=== PATIENT | male | born 1995 | race Caucasian/White ===

== ENCOUNTER 2017-12-03 11:40 | Emergency (ER) | payer SELFPAY ==
--- OUTSIDE RECORDS SUMMARY | 2017-12-03 11:41 | XMS REPORT | Summary of Care ---
:1995 Author Name Shonna Shrestha M.A. Address [place] Physicians Unavailable , Care Team Providers Name Role Phone LE Arana, SAHHID Unavailable Unavailable [facility], LEVY Reed Unavailable Unavailable Unavailable Unavailable Unavailable Functional Status Name Dates Details Functional status health issues are not documented Status: Name Dates Details Cognitive status health issues are not documented Status: Problems Name Dates Details Inguinal hernia, right (550.90, K40.90) Status: Active Elevated liver enzymes (790.5, R74.8) Status: Active Hospital discharge follow-up (V67.59, Z09) Status: Active Medications Name Dates Details No Reported Medications Refills: 0 Active Allergies and Adverse Reactions Name Dates Details No Known Drug Allergies (Allergy) Status: Active Past Medical History Name Dates Details History of Anxiety (300.00, F41.9) Status: Resolved History of attention deficit hyperactivity disorder (ADHD) (V11.8, Z86.59) Status: Resolved History of depressed bipolar disorder (296.56, F31.70) Status: Resolved History of Hepatitis C antibody positive in blood (795.79, R76.8) Status: Resolved History of right inguinal hernia (V45.89, Z87.19) Status: Resolved History of schizophrenia (V11.0, Z86.59) Status: Resolved Procedures Procedure Dates Details [QL] HCV RNA, QUANTITATIVE REAL TIME PCR Date: 13-Oct-2017 [Q] HIV-1/2 Antigen and Antibodies, Fourth Generation, Date: 13-Oct-2017 with Reflexes History of Anterior cruciate ligament repair Completed History of Nasal bone fracture repair Completed Immunization Name Dates Details Immunizations not documented Family History Name Dates Details Family history of hypertension (V17.49, Z82.49) Comments: Multiple Family Members Status: Active Social History Name Dates Details - Status: Name Dates Details Smoker. current status unknown Vital Signs Date Test Result Details [id number] Physical Findings 12 Status: Comments: PHQ-9 Adult Depression Screening Results Date Description Value Details Results not documented Plan of Care Name Dates Details Planned Observations Planned Goals not documented Planned Encounters Appointment; SHAHID LUJAN M.D. On: 05-Dec-2017 8:30 Instructions Name Dates Details Instructions not documented Encounters Appointment; LEVY HATFIELD NP On: 13-Oct-2017 13:00 Encounter Diagnosis: Problem not documented Appointment; SHAHID LUJAN M.D. On: 05-Dec-2017 8:30 Encounter Diagnosis: Problem not documented
--- OUTSIDE RECORDS SUMMARY | 2017-12-03 11:42 | XMS REPORT ---
:1995 [facility] Address [address] [place] [address] [address] [place] [address] Care Team Providers Name Role Phone DR MAISHA MENDEZ Unavailable Unavailable JOYCE ACKERMAN Unavailable Unavailable Problems This patient has no known problems. Allergies, Adverse Reactions, Alerts This patient has no known allergies or adverse reactions. Medications This patient has no known medications. Encounters Start End Encounter Admission Attending Care Care Encounter Date/Time Date/Time Type Type Clinicians Facility Department ID 2017-12-02 2017-12-02 Emergency E MAISHA MENDEZ [facility] [id number] 04:51:00 06:16:00 2017-10-09 2017-10-09 Emergency E TYRON [facility] [id number] 08:59:00 12:30:00 JOYCE Results Test Description Test Time Test Comments Text Results Atomic Results Result Comments URINALYSIS WITH MICRO 2017-12-02 06:25:00 Test Item Value Reference Range Comments COLOR (test code=COLU) DK YELLOW YELLOW CLARITY (test code=CLA) SLT HAZY CLEAR GLUCOSE UR (test code=UA GLUCOSE) NEGATIVE NEGATIVE BILI UR (test code=BILE) NEGATIVE NEGATIVE KETONES UR (test code=CHERYLE) TRACE NEGATIVE SP GRAVITY (test code=SPGR) 1.036 1.005-1.030 PH UR (test code=PH) 5.5 4.5-8.0 PROTEIN UR (test code=PU) 1+ NEGATIVE UROBIL UR (test code=UROQ) 0.2 EU/dL 0.2-1.0 NITRITE UR (test code=NITRITE) NEGATIVE NEGATIVE BLOOD UR (test code=UA BLOOD) 3+ NEGATIVE LEUK ES UR (test code=LEUK) NEGATIVE NEGATIVE WBC UR (test code=UWBC) 0 /HPF 0-3 RBC UR (test code=URBC) 7 /HPF 0-2 EPITH UR (test code=UEPC) FEW /LPF NONE BACTERIA UR (test code=UBACT) NONE /HPF NONE CAST UR (test code=CAST) /LPF NONE CRYSTAL UR (test code=CRYU) / LPF NONE MUCUS UR (test code=MUC) / HPF NONE AMORPH UR (test code=ALESSIA) FEW / HPF NONE TRICH UR (test code=UTRICH) /HPF NONE YEAST UR (test code=UY) /HPF NONE SPERM UR (test code=USPERM) /HPF NONE CT STONE PROTOCOL [id number] 05:46:05AFTER HOURS SERVICE ON: 12/02/2017 5:43 AMCT Scan of the Abdomen and Pelvis Without ContrastLocation Code [id number]: [id number]: Flank painTechnique: Axial and reconstructed coronal scans were performedon a helicalscanner pre oral and IV contrast. Study is limited secondary to lack of oraland IV contrast. One or more of the following dose reduction techniques were used: Automatedexposure control, adjustment of the mA and/or kV according to patient size,and/or utilization of iterative reconstructiontechnique.Findings: Liver: No significant findings. Gallbladder/ Biliary: No significant findings. Pancreas: No significant findings. Spleen: No significant findings.Adrenals: No significant findings. Kidneys: There is mild respiratory hydronephrosis and hydroureter due to a 3 mmUVJ calculus. There isno hydronephrosis of the left kidney. A 2 mmnonobstructing right upper pole renal calculus is also present. Bladder isincompletely filled.Bowel: No significant findings. The appendix is unremarkable.Impression:1. 3 mm right UVJ calculus causing mild hydronephrosis.2. 2 mm nonobstructing right upper pole renal calculus.AMYLASE AND [id number] 05:35:00 Test Item Value Reference Range Comments AMYLASE (test code=10A) 44 U/L 28-100 LIPASE (test code=60A) 73 IU/L 73-393 COMPREHENSIVE METABOLIC [id number] 05:35:00 Test Item Value Reference Range Comments GLUCOSE (test code=06D) 106 mg/dL 75-100 SODIUM (test code=01A) 138 mmol/L 136-145 POTASSIUM (test code=01B) 3.9 mmol/L 3.6-5.1 CHLORIDE (test code=04A) 103 mmol/L 98-107 CO2 (test code=02A) 27 mmol/L 22-32 ANION GAP (test code=ANG) 11.9 mmol/L BUN (test code=05D) 14 mg/dL 7-18 CREATININE (test code=03E) 1.2 mg/dL 0.7-1.3 BUN/CREA (test code=BCR) 12 12-20 CALCIUM (test code=09D) 8.9 mg/dL 8.3-9.5 BILI TOTAL (test code=11A) 0.6 mg/dL 0.2-1.0 PROTEIN (test code=07D) 8.0 g/dL 6.4-8.2 ALBUMIN (test code=08D) 4.2 g/dL 3.5-4.8 GLOBULIN (test code=GLB) 3.8 g/dL 1.5-3.8 ALB/GLOB (test code=AGRR) 1.1 1.0-2.6 ALK PHOS (test code=35A) 79 IU/L 42-121 AST (test code=30A) 128 IU/L <=42 ALT (test code=31A) 259 IU/L <=78 CBC (INCLUDES AUTOMATED DIFFERENTIAL)2017-12-02 05:20:00 Test Item Value Reference Range Comments WBC (test code=WBC) 7.7 10\S\3/uL 4.5-11.0 RBC (test code=RBC) 5.07 10\S\6/uL 4.30-5.70 HGB (test code=HBG) 15.5 g/dL 14.0-18.0 HCT (test code=HCT) 44.5 % 35.0-46.0 MCV (test code=MCV) 87.8 fL 80.0-94.0 MCH (test code=MCH) 30.6 pg 27.0-31.0 MCHC (test code=MCHC) 34.8 g/dL 32.0-36.0 RDW (test code=RDW) 12.0 % 11.5-14.5 PLT (test code=PLT) 243 10\S\3/uL 130-400 MPV (test code=MPV) 10.9 fL 9.4-12.4 NEUTROP # (test code=NE#) 3.1 10\S\3/uL 2.0-8.0 LYMPH # (test code=LY#) 4.1 10\S\3/uL 1.2-4.0 MONOCYTE # (test code=MO#) 0.5 10\S\3/uL 0.0-1.1 EOSINOPH # (test code=EO#) 0.1 10\S\3/uL 0.0-0.7 BASOPHIL # (test code=BA#) 0.0 10\S\3/uL 0.0-0.3 IG # (test code=IG#) 0.02 10\S\3/uL 0.00-0.06 NRBC # (test code=NRBC#) 0.00 10\S\3/uL 0.00-0.01 NEUTROPH % (test code=NE%) 39.8 % 35.0-73.0 LYMPH % (test code=LY%) 52.7 % 20.0-55.0 MONO % (test code=MO%) 6.0 % 2.5-10.0 EOSINOPH % (test code=EO%) 0.8 % 0.0-5.0 BASOPHIL % (test code=BA%) 0.4 % 0.0-2.0 IG % (test code=IG%) 0.3 % 0.0-0.8 NRBC% (test code=NRBC%) 0.0 % 0.0-0.2 MANDIFF (test code=MDIFF) NO NO RBC MORPH (test code=RBCMOR) NORMAL HEPATITIS C BY PCR (VIRAL LOAD)2017-10-11 16:04:00 Test Item Value Reference Range Comments HCV RNA QUANTITATIVE REAL [id number] IU/mL NOT DETECTED TIME PCR (test uihr=[id number]) HCV RNA, Quantitative Real 6.02 Log IU/mL NOT DETECTED Time PCR (test hsdd=[id number]) END NOTE 1 (test This test was performed xojv=[id number]) using Real-Time Polymerase ChainReaction.Reportable Range: 15 IU/mL to 100,000,000 IU/mL(1.18 Log IU/mL to 8.00 Log IU/mL).The analytical performance characteristics of thisassay have been determined by [employer].The modifications have not been cleared or approved bythe FDA. This assay has been validated pursuant to theCLIA regulations and is used for clinical purposes.For more information on this test, go to:http://education.[employer].io/faq/OCB17u1(Thi s link is being provided for informational/educational purposes only.)TEST PERFORMED AT:[id number] [place], [place] [address]VTQYQUNADEEN CHAVES MD HEPATITIS A IGM [id number] 08:01:00 Test Item Value Reference Range Comments HEPATITIS A IGM (test NON-REACTIVE NON-REACTIVE TEST PERFORMED AT:QUEST frkm=[id number]) [facility] [id number] [place] [id number] WALSH M.D. HEPATITIS C [id number] 13:17:00 Test Item Value Reference Range Comments HCAB (test code=HCAB) REACTIVE NON-REACTIVE U/S [id number] 12:04:29Location of dictation: [id number] ULTRASOUNDCLINICAL HISTORY:Right scrotal mass and painCOMPARISON:NoneTECHNIQUE: Multiple high resolution images were obtained through the pelvis using amultifrequency linear transducer. Color Doppler was also utilized.FINDINGS: The bilateral testes are normal in size, shape, and echogenicity. The righttestis measures 3.8 x 2.3 x 2.5 cm. The left testis measures 3.1x 2.3 x 2.6cm. No solid or cystic masses identified. Vascular flow is documented; thereis no evidence of torsion.The bilateral epididymides are also within normal limits. No solid or cysticmass is found. No hyperemia is seen.There is no hydrocele.With patient in the upright position there is a heterogeneous area of swellingin the right inguinal canal measuring 5 x 3 x 4.4 cm with no peristalsissuggestive of a fat-containing right inguinal hernia. This can be confirmed onCT.IMPRESSION:1. No evidence for testicular mass or torsion.2. Findings suggestive of a fat-containing right inguinal hernia. CTmay behelpful for confirmation.HEPATITIS B SURFACE [id number] 12:00:00 Test Item Value Reference Range Comments HBSAG (test code=HBSAG) NON-REACTIVE NON-REACTIVE CT ABDOMEN AND PELVIS WITH [id number] 10:21:04CT abdomen and pelvis with contrastLocation Code: [id number] HISTORY: R10.31: RIGHT LOWER QUADRANT PAINCOMPARISON: NoneTechnique: Helical CT of the abdomen and pelvis was performed followingintravenouscontrast. Thin section axial, sagittal and coronal images wereobtained. One or more of the followingdose reduction techniques were used:Automated exposure control, adjustment of the mA and or KV according to patientsize, and/or utilization of iterative reconstruction technique. DLP: 1052mGy-cm.FINDINGS:The lung bases are clear. The liver, gallbladder, adrenal glands, kidneys, pancreas, and spleen areunremarkable.The unopacified loops of bowel demonstrate no focal thickening or dilatation.Moderate stool seen throughout the colon. The appendix is visualized and isnormal. There is no free peritonealair or fluid. The abdominal aorta is normal in caliber and contour. There is noretroperitoneal massor fluid collection. The urinary bladder is unremarkable.There is no pelvic mass or fluid collection. No evidence of diverticulitis.The bones, skin, and surrounding soft tissues are unremarkable.IMPRESSION: 1. Moderate stool throughout the colon may represent constipation. Normalappendix.COMPREHENSIVE METABOLIC [id number] 09:46:00 Test Item Value Reference Range Comments GLUCOSE (test code=06D) 103 mg/dL 75-100 SODIUM (test code=01A) 137 mmol/L 136-145 POTASSIUM (test code=01B) 4.2 mmol/L 3.6-5.1 CHLORIDE (test code=04A) 101 mmol/L 98-107 CO2 (test code=02A) 32 mmol/L 22-32 ANION GAP (test code=ANG) 8.2 mmol/L BUN (test code=05D) 11 mg/dL 7-18 CREATININE (test code=03E) 1.0 mg/dL 0.7-1.3 BUN/CREA (test code=BCR) 11 12-20 CALCIUM (test code=09D) 8.9 mg/dL 8.3-9.5 BILI TOTAL (test code=11A) 0.7 mg/dL 0.2-1.0 PROTEIN (test code=07D) 7.9 g/dL 6.4-8.2 ALBUMIN (test code=08D) 4.3 g/dL 3.5-4.8 GLOBULIN (test code=GLB) 3.6 g/dL 1.5-3.8 ALB/GLOB (test code=AGRR) 1.2 1.0-2.6 ALK PHOS (test code=35A) 121 IU/L 42-121 AST (test code=30A) 341 IU/L <=42 ALT (test code=31A) 903 IU/L <=78 [id number] 09:46:00 Test Item Value Reference Range Comments AMYLASE (test code=10A) 42 U/L 28-100 [id number] 09:40:00 Test Item Value Reference Range Comments COLOR (test code=COLU) YELLOW YELLOW CLARITY (test code=CLA) CLEAR CLEAR GLUCOSE UR (test code=UA GLUCOSE) NEGATIVE NEGATIVE BILI UR (test code=BILE) NEGATIVE NEGATIVE KETONES UR (test code=CHERYLE) NEGATIVE NEGATIVE SP GRAVITY (test code=SPGR) 1.018 1.005-1.030 PH UR (test code=PH) 7.0 4.5-8.0 PROTEIN UR (test code=PU) NEGATIVE NEGATIVE UROBIL UR (test code=UROQ) 1.0 EU/dL 0.2-1.0 NITRITE UR (test code=NITRITE) NEGATIVE NEGATIVE BLOOD UR (test code=UA BLOOD) NEGATIVE NEGATIVE LEUK ES UR (test code=LEUK) NEGATIVE NEGATIVE LIPASE [id number] 09:40:00 Test Item Value Reference Range Comments LIPASE (test code=60A) 70 IU/L 73-393 CBC (INCLUDES AUTOMATED DIFFERENTIAL)2017-10-09 09:26:00 Test Item Value Reference Range Comments WBC (test code=WBC) 4.3 10\S\3/uL 4.5-11.0 RBC (test code=RBC) 5.14 10\S\6/uL 4.30-5.70 HGB (test code=HBG) 15.8 g/dL 14.0-18.0 HCT (test code=HCT) 47.2 % 35.0-46.0 MCV (test code=MCV) 91.8 fL 80.0-94.0 MCH (test code=MCH) 30.7 pg 27.0-31.0 MCHC (test code=MCHC) 33.5 g/dL 32.0-36.0 RDW (test code=RDW) 13.1 % 11.5-14.5 PLT (test code=PLT) 215 10\S\3/uL 130-400 MPV (test code=MPV) 10.5 fL 9.4-12.4 NEUTROP # (test code=NE#) 1.8 10\S\3/uL 2.0-8.0 LYMPH # (test code=LY#) 1.9 10\S\3/uL 1.2-4.0 MONOCYTE # (test code=MO#) 0.4 10\S\3/uL 0.0-1.1 EOSINOPH # (test code=EO#) 0.1 10\S\3/uL 0.0-0.7 BASOPHIL # (test code=BA#) 0.0 10\S\3/uL 0.0-0.3 IG # (test code=IG#) 0.01 10\S\3/uL 0.00-0.06 NRBC # (test code=NRBC#) 0.00 10\S\3/uL 0.00-0.01 NEUTROPH % (test code=NE%) 42.7 % 35.0-73.0 LYMPH % (test code=LY%) 44.2 % 20.0-55.0 MONO % (test code=MO%) 10.3 % 2.5-10.0 EOSINOPH % (test code=EO%) 2.1 % 0.0-5.0 BASOPHIL % (test code=BA%) 0.5 % 0.0-2.0 IG % (test code=IG%) 0.2 % 0.0-0.8 NRBC% (test code=NRBC%) 0.0 % 0.0-0.2 MANDIFF (test code=MDIFF) NO NO RBC MORPH (test code=RBCMOR) NORMAL
[2017-12-03] MEDS ORDERED: NA CHLORIDE 0.9% 1,000 ML ONE (11:59)
--- NOTE | 2017-12-03 12:18 | RAD REPORT ---
EXAM DESCRIPTION: CT - Stone Protocol - 12/03/2017 12:08 pm CLINICAL HISTORY: Abdominal pain, flank pain, history of recent diagnosis of kidney stone COMPARISON: None. TECHNIQUE: Axial 5 mm thick images were obtained without oral or IV contrast. The [id number] span s the entirety of the system including uppermost abdomen and lung bases. All CT scans are performed using dose optimization technique as appropriate and may include automated exposure control or mA/KV adjustment according to patient size. FINDINGS: Mild right-sided hydronephrosis is present secondary to a 2 mm calcification at the UVJ. R ight kidney is edematous. There are additional punctate 1 millimeter sized caliceal calculi on the ri ght. No left-sided hydronephrosis or left-sided calculus. No suspicious renal masses. Isodense masses and pyelonephritis are not excluded on a stone protocol CT scan. Partially filled urinary bladder sh ows no suspicious finding. Imaged portions of the liver, spleen and pancreas show no suspicious findings on non-contrast imaging . No gallbladder or biliary tree abnormality identified. No significant adrenal finding. No suspicious bowel findings. No mass or bulky lymphadenopathy. Fat filled right inguinal hernia is present. No free air or pneumat osis. Trace free fluid in the dependent portion of the pelvis is likely reactive. No significant bony abnormality. IMPRESSION: Mild right-sided hydronephrosis secondary to a 2 millimeter UVJ stone. Isodense masses and pyelonephritis are not excluded on stone protocol technique.
[2017-12-03 12:24] LABS: Absolute Lymphocytes (CBC) 1.3 K/uL (0.7-4.9); Absolute Monocytes 0.4 K/uL (0.1-1.3); Absolute Neutrophil 6.3 K/uL (1.8-8.0); Basophils % 0.3 % (0-1.3); Eosinophils % 0.1 % (0-4.4); Hematocrit 41.5 % (39.6-49.0); Lymphocytes % 16.4 % (15.3-44.8); MCH 31.1 pg (27.0-35.0); MCV 89.6 fL (80-100); Monocytes % 4.7 % (3.3-12.3); RBC Red Blood Cell Count 4.63 M/uL (4.33-5.43)
[2017-12-03] MEDS ORDERED: FENTANYL CITR 100 MCG/2 ML ONE (12:25)
[2017-12-03] MEDS ORDERED: TAMSULOSIN 0.4 MG SR CAP ONE (12:27)
[2017-12-03 12:38] LABS: Potassium 3.6 mEq/L (3.6-5.0)
--- NOTE | 2017-12-03 13:52 | ER ---
Nurse's Notes [facility] Name: Ihsan Castellanos Age: 22 yrs Sex: Male : 1995 Arrival Date: 12/03/2017 Time: 11:42 Bed 5 Private MD: Diagnosis: Calculus of kidney and ureter Presentation: 12/03 11:44 Presenting complaint: EMS states: pt was seen and treated in the hospital yesterday, dx sg with kidney stone sent home with prescriptions for flomax, an anti inflammatory, is not able to get the meds until Friday, pt reports worsening pain and nausea/vomiting today, denies having passed a kidney stone to his knowledge. Transition of care: patient was not received from another setting of care. Onset of symptoms was December 03, 2017. Initial Sepsis Screen: Does the patient meet any 2 criteria? No. Patient's initial sepsis screen is negative. Does the patient have a suspected source of infection? No. Patient's initial sepsis screen is negative. Care prior to arrival: Medication(s) given: zofran 4 mg, Fentanyl 100 mcg IVP, reports pain 10/10 down to 5/10, reports nausea upon arrival to facility IV initiated. 11:44 Method Of Arrival: EMS: [facility] sg 11:44 Acuity: WAYLON 3 sg Historical: - Allergies: 11:48 No Known Allergies; sg - Home Meds: 11:48 None [Active]; sg - PMHx: 11:48 Kidney stones; sg - PSHx: 11:48 None; sg - Immunization history:: Adult Immunizations unknown. - Social history:: Smoking status: Patient/guardian denies using tobacco. Screenin:40 Abuse screen: Denies threats or abuse. Denies injuries from another. Nutritional sg screening: No deficits noted. Tuberculosis screening: No symptoms or risk factors identified. Never had TB. Fall Risk None identified. Assessment: 11:40 General: Appears in no apparent distress. uncomfortable, well groomed, well developed, sg well nourished, Behavior is calm, cooperative, appropriate for age. Pain: Complains of pain in right mid back Pain radiates to right upper quadrant Quality of pain is described as aching, crampy, sharp, stabbing. Neuro: Level of Consciousness is awake, alert, obeys commands, Oriented to person, place, time, situation, Speech is normal, Facial symmetry appears normal. Cardiovascular: Heart tones S1 S2 present Capillary refill is brisk in bilateral fingers Patient's skin is warm and dry. Chest pain is denied. Respiratory: Airway is patent Respiratory effort is even, unlabored, Respiratory pattern is regular, symmetrical, Breath sounds are clear. GI: Abdomen is flat, non-distended, Bowel sounds present X 4 quads. Abd is soft X 4 quads Reports lower abdominal pain, upper abdominal pain, nausea, vomiting. : Reports pain in right flank(s), upper quadrant(s) lower quadrant(s). EENT: No signs and/or symptoms were reported regarding the EENT system. Derm: Skin is pink, warm \T\ dry. Musculoskeletal: No signs and/or symptoms reported regarding the musculoskeletal system. Vital Signs: 11:47 BP 128 / 83; Pulse 81; Resp 18 S; Pulse Ox 100% on R/A; Weight 83.91 kg (R); Pain 5/10; sg 12:19 Temp 97.9(O); sg ED Course: 11:40 Arm band placed on. sg 11:40 Patient has correct armband on for positive identification. Bed in low position. Call sg light in reach. Side rails up X2. Pulse ox on. NIBP on. 11:42 Patient arrived in ED. sg 11:44 Kathy Thompson FNP-C [facility]. kb 11:44 Brandan Mahan MD is Attending Physician. kb 11:47 Triage completed. sg 11:52 Miguel Rebolledo, RN is Primary Nurse. sg 12:[address] via wheelchair. sg 12:08 CT Stone Protocol In Process Unspecified. EDMS 12:10 Initial lab(s) drawn, by me, sent to lab. Maintain EMS IV. Dressing intact. Good blood sg return noted. Site clean \T\ dry. Gauge \T\ site: 18 G RAC. IV is patent, is intact, with good blood return, Flushed right antecubital peripheral line with 5 ml normal saline. 12:17 Awaiting lab results, Awaiting radiology results. sg 14:00 No provider procedures requiring assistance completed. IV discontinued, intact, sg bleeding controlled, No redness/swelling at site. Pressure dressing applied. Administered Medications: 12:09 Drug: NS 0.9% 1000 ml Route: IV; Rate: 1000 ml; Site: right antecubital; sg 13:15 Follow up: Response: No adverse reaction; IV Status: Completed infusion; IV Intake: sg 990ml 12:28 Drug: Flomax 0.4 mg Route: PO; sg 14:00 Follow up: Response: No adverse reaction sg 12:28 Drug: fentaNYL (PF) 50 mcg Route: IVP; Site: left antecubital; sg 13:50 Follow up: Response: No adverse reaction; Pain is unchanged, physician notified sg 14:00 Drug: [place] 10 mg-325 mg 1 tabs Route: PO; sg 14:05 Follow up: Response: No adverse reaction; Medication administered at discharge. sg Intake: 13:15 IV: 990ml; Total: 990ml. sg Outcome: 13:51 Discharge ordered by . mirian 14:05 Discharged to home ambulatory, with family. sg 14:05 Condition: good 14:05 Discharge instructions given to patient, Instructed on discharge instructions, follow up and referral plans. medication usage, safety practices, Demonstrated understanding of instructions, follow-up care, medications, Prescriptions given X 1. 14:07 Patient left the ED. sg Signatures: Dispatcher [employer] Kathy Cha, FLOAT PHLEBOTOMIST-C FLOAT PHLEBOTOMIST-Miguel Gonsalez, RN RN sg
--- NOTE | 2017-12-03 13:52 | EDPHYS ---
Physician Documentation [facility] Name: Ihsan Castellanos Age: 22 yrs Sex: Male : 1995 Arrival Date: 12/03/2017 Time: 11:42 Bed 5 Private MD: ED Physician Brandan Mahan HPI: 12/03 12:51 This 22 yrs old Male presents to ER via EMS with complaints of flank pain. kb 12:51 The patient complains of pain in the right flank. The pain radiates to the right lower kb quadrant. Onset: The symptoms/episode began/occurred yesterday. Modifying factors: The symptoms are alleviated by nothing. the symptoms are aggravated by palpation/percussion. Associated signs and symptoms: Pertinent positives: nausea, vomiting. Severity of pain: At its worst the pain was moderate in the emergency department the pain is unchanged. The patient has not experienced similar symptoms in the past. The patient has been recently seen by a physician: the ER physician, out of Town. Historical: - Allergies: 11:48 No Known Allergies; sg - Home Meds: 11:48 None [Active]; sg - PMHx: 11:48 Kidney stones; sg - PSHx: 11:48 None; sg - Immunization history:: Adult Immunizations unknown. - Social history:: Smoking status: Patient/guardian denies using tobacco. ROS: 12:51 Constitutional: Negative for fever, chills, and weight loss, Cardiovascular: Negative kb for chest pain, palpitations, and edema, Respiratory: Negative for shortness of breath, cough, wheezing, and pleuritic chest pain, Abdomen/GI: Negative for abdominal pain, nausea, vomiting, diarrhea, and constipation, : Negative for injury, bleeding, discharge, and swelling, MS/Extremity: Negative for injury and deformity, Skin: Negative for injury, rash, and discoloration, Neuro: Negative for headache, weakness, numbness, tingling, and seizure. 12:51 Back: Positive for flank pain, on the right, radiated pain, of the right lower quadrant, Negative for injury or acute deformity, decreased range of motion, pain at rest, pain with movement. Exam: 12:54 Constitutional: This is a well developed, well nourished patient who is awake, alert, kb and in no acute distress. Head/Face: Normocephalic, atraumatic. Chest/axilla: Normal chest wall appearance and motion. Nontender with no deformity. No lesions are appreciated. Cardiovascular: Regular rate and rhythm with a normal S1 and S2. No gallops, murmurs, or rubs. Normal PMI, no JVD. No pulse deficits. Respiratory: Lungs have equal breath sounds bilaterally, clear to auscultation and percussion. No rales, rhonchi or wheezes noted. No increased work of breathing, no retractions or nasal flaring. Skin: Warm, dry with normal turgor. Normal color with no rashes, no lesions, and no evidence of cellulitis. MS/ Extremity: Pulses equal, no cyanosis. Neurovascular intact. Full, normal range of motion. Neuro: Awake and alert, GCS 15, oriented to person, place, time, and situation. Cranial nerves II-XII grossly intact. Motor strength 5/5 in all extremities. Sensory grossly intact. Cerebellar exam normal. Normal gait. 12:54 Abdomen/GI: Inspection: abdomen appears normal, Bowel sounds: normal, in all quadrants, Palpation: moderate abdominal tenderness, in the right lower quadrant. 12:54 Back: CVA tenderness, that is moderate, is noted on the right. Vital Signs: 11:47 BP 128 / 83; Pulse 81; Resp 18 S; Pulse Ox 100% on R/A; Weight 83.91 kg (R); Pain 5/10; sg 12:19 Temp 97.9(O); sg MDM: 11:45 Patient medically screened. kb 12:55 Data reviewed: vital signs, nurses notes. Data interpreted: Pulse oximetry: on room air kb is 100 %. Interpretation: normal. 13:47 Counseling: I had a detailed discussion with the patient and/or guardian regarding: the kb historical points, exam findings, and any diagnostic results supporting the discharge/admit diagnosis, lab results, radiology results, the need for outpatient follow up, a urologist, to return to the emergency department if symptoms worsen or persist or if there are any questions or concerns that arise at home. 12/03 11:51 Order name: CBC with Diff; Complete Time: 12:28 kb 12/03 11:51 Order name: Basic Metabolic Panel; Complete Time: 12:41 kb 12/03 11:51 Order name: CT Stone Protocol; Complete Time: 12:21 kb 12/03 13:53 Order name: Urine Dipstick--Ancillary (enter results); Complete Time: 15:20 bd 12/03 11:51 Order name: Urine Dipstick-Ancillary (obtain specimen); Complete Time: 13:50 kb 12/03 11:51 Order name: IV Saline Lock; Complete Time: 11:52 kb Administered Medications: 12:09 Drug: NS 0.9% 1000 ml Route: IV; Rate: 1000 ml; Site: right antecubital; sg 13:15 Follow up: Response: No adverse reaction; IV Status: Completed infusion; IV Intake: sg 990ml 12:28 Drug: Flomax 0.4 mg Route: PO; sg 14:00 Follow up: Response: No adverse reaction sg 12:28 Drug: fentaNYL (PF) 50 mcg Route: IVP; Site: left antecubital; sg 13:50 Follow up: Response: No adverse reaction; Pain is unchanged, physician notified sg 14:00 Drug: [place] 10 mg-325 mg 1 tabs Route: PO; sg 14:05 Follow up: Response: No adverse reaction; Medication administered at discharge. Disposition: 22:22 Co-signature as Attending Physician, Brandan Mahan MD I agree with the assessment and kdr plan of care. Disposition: 12/03/17 13:51 Discharged to Home. Impression: Calculus of kidney and ureter. - Condition is Stable. - Discharge Instructions: Kidney Stones, [id number], Dietary Guidelines to Help Prevent Kidney Stones. - Prescriptions for Flomax 0.4 mg Oral Capsule, Sust. Release 24 hr - take 1 capsule by ORAL route once daily for 10 days; 10 capsule. - Medication Reconciliation Form, Thank You Letter, Antibiotic Education, Prescription Opioid Use, Work release form form. - Follow up: Emergency Department; When: As needed; Reason: Worsening of condition. Follow up: Private Physician; When: 2 - 3 days; Reason: Recheck today's complaints, Continuance of care, Re-evaluation by your physician. Signatures: Dispatcher [employer] Kathy Cha, MAIKOL ASHTON-Miguel Gonsalez RN RN Brandan Tran MD MD [facility] Corrections: (The following items were deleted from the chart) 14:07 13:51 12/03/2017 13:51 Discharged to Home. Impression: Calculus of kidney and ureter. sg Condition is Stable. Discharge Instructions: Kidney Stones, [id number], Dietary Guidelines to Help Prevent Kidney Stones. Forms are Medication Reconciliation Form, Thank You Letter, Antibiotic Education, Prescription Opioid Use. Follow up: Emergency Department; When: As needed; Reason: Worsening of condition. Follow up: Private Physician; When: 2 - 3 days; Reason: Recheck today's complaints, Continuance of care, Re-evaluation by your physician. kb
[2017-12-03] MEDS ORDERED: HYDROCODONE/APAP 10/325 TAB ONE (14:02)
[2017-12-03 14:06] LABS: Urine Blood 2+ (NEG); Urine Glucose NEGATIVE (NEG); Urine Protein NEGATIVE (NEG); Urine pH 6.5 (5.0-7.0)
== END 2017-12-03 14:07 | disposition home or self-care (01) ==
LOC: ER 11:40
DX: N20.2 Calculus of kidney with calculus of ureter (principal)
CPT/HCPCS: 36415; 74176; 76377; 80048; 81003; 85025; 96361; 96374; 99284; J3010; J7030